=== PATIENT | female | born 1980 | race Caucasian/White ===

== ENCOUNTER → 2016-04-24 | Day surgery (SDC) | payer MEDICARE, OTHER ==
[~2016-04-24] MED LIST: ALBUTEROL17 GM INH; ALLEGRA ALLERG180 MG PO; ALLEGRA-D1 TAB.SR3 PO; AMOXICILLIN500 M1 PO; AMOXICILLIN875 MG PO; ASPIRIN81 M2 PO; ASPIRIN81 MG PO; AURALGAN EAR DR14 ML AD; CIPRO PO; CLOPIDOGREL75 MG PO; COREG3.125 MG PO; DOXYCYCLINE PO; DULOXETINE HCL60 MG PO; EC-NAPROSYN500 MG PO; FLEXERIL PO; FLUTICASONE; GABAPENTIN600 MG PO; GLUCOMETER DEX1 PKT IN; GLUCOPHAGE500 M1 PO; HYDROCODON-ACE1 EAC5 PO; IBUPROFEN; IBUPROFEN800 MG PO; KLONOPIN1 MG PO; LASIX20 MG PO; LEVEMIR FL100 UNIT/1 SUBQ; LEVEMIR100 UNITS/ SUBQ; LIPITOR80 MG PO; LISINOPRIL10 MG PO; LORTAB 10-3251 EACH PO; MEDROL PO; METFORMIN PO; MULTI-VITAMIN1 TAB PO; NEURONTIN600 MG PO; NORCO 5/325 TAB1 TAB PO; PHENERGAN PO; PLAVIX PO; PREDNISONE PO; PRILOSEC20 MG PO; ROBAXIN PO; TIZANIDINE HCL4 M1 PO; TORADOL10 MG PO; VICODIN 5/500 T1 TAB PO; [UNRECOGNIZED DRUG - OTHER]
--- NOTE | ~2016-04-24 | OR ---
Unit #: [id number] #: [id number] Patient: ALESIA GILLIS [id number] [address] [address] [id number] O MR#: [id number] NAME: ALESIA GILLIS ROOM: Date of Procedure: 04/18/2016 Admission Date: 04/24/2016 Surgeon: Eduardo Smallwood M.D. : 1980 Attending Physician: Eduardo Smallwood M.D. Primary Care Physician: Vania Werner M.D. OPERATIVE REPORT PREOPERATIVE DIAGNOSIS Recurrent incisional ventral hernia. POSTOPERATIVE DIAGNOSIS 6 cm x 3 cm incarcerated recurrent incisional hernia. PROCEDURE PERFORMED Laparoscopic ventral hernia repair of recurrent incarcerated incisional hernia. 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 ANESTHESIA General endotracheal anesthesia. ESTIMATED BLOOD LOSS Minimal. IV FLUIDS 1200 crystalloid. COMPLICATIONS None. INDICATIONS This is a 35-year-old lady presents with incarcerated hernia as mentioned. DESCRIPTION OF PROCEDURE The patient was taken to the operating theater and placed in supine position. General anesthesia was induced. The abdomen was prepped and draped. A 5-mm Optiview trocar was placed in the left lower quadrant. The abdomen was insufflated to 15 mmHg with CO2. Under direct vision, I placed left lower quadrant 10 mm, right upper quadrant 5 mm, right lower quadrant 5 mm. General inspection of the abdomen revealed an incarcerated hernia. There was previously placed mesh that appeared to have pulled away from the lateral sidewall. The hernia was reduced. The defect measured 6 cm x 2 cm. I then placed an 8 x 10 Ventralight mesh into position. I left the previous mesh in place. This was positioned using 0 Vicryl delivered transcutaneous. I then secured with the tacking device with each tack being 1.5 cm from previous tack. This covered the defect by at least 5 cm in all circumference. Hemostasis was adequate. I Unit #: [id number] #: [id number] Patient: ALESIA GILLIS removed the ports under direct vision. The wounds were closed with 4-0. The sutures were cut at skin level. The patient tolerated the procedure well and sent to the recovery room in good condition. Dictated by... Allie Tiwari/arnoldo TD: 04/25/2016 04:42 JOB #: [id number] OPERATIVE REPORT X Eduardo Smallwood MD PROCEDURE OPERATIVE NOTE
[2016-04-24 09:55] LABS: BLOOD UREA NITROGEN 11 mg/dL (9-23); BUN/CREATININE RATIO 15.71; CALCIUM SERUM 8.3 mg/dL (8.4-10.2); CARBON DIOXIDE 25 mmol/L (22-31); CHLORIDE 100 mmol/L (100-111); CREATININE SERUM 0.7 mg/dL (0.6-1.4); GLOM FILT RATE Estimated ABOVE60 mL/min (>60); GLUCOSE FASTING 305 mg/dL (70-110); POTASSIUM 3.6 mmol/L (3.5-5.1); SODIUM 132 mmol/L (135-145)
== END | disposition home or self-care (01) ==
LOC: CSUR 08:38
PROVIDERS: Surgery
DX: K43.0 Incisional hernia with obstruction, without gangrene (principal); E11.9 Type 2 diabetes mellitus without complications; M19.90 Unspecified osteoarthritis, unspecified site; F41.9 Anxiety disorder, unspecified; F17.210 Nicotine dependence, cigarettes, uncomplicated; Z87.01 Personal history of pneumonia (recurrent); Z88.5 Allergy status to narcotic agent; Z88.8 Allergy status to other drugs, medicaments and biological substances; Z79.82 Long term (current) use of aspirin; Z79.899 Other long term (current) drug therapy; Z90.49 Acquired absence of other specified parts of digestive tract; Z98.890 Other specified postprocedural states
CPT/HCPCS: 80048; 82947; 84703; C1713; C1781; J0131; J0330; J0690; J1100; J1170; J1644; J2250; J2405; J3010; J3370